=== PATIENT | male | born 1950 | race Caucasian/White ===

== ENCOUNTER 2020-12-23 15:16 | Emergency (ER) | payer BC, OTHER ==
[2020-12-23] MEDS ORDERED: SODIUM CHLORIDE 0.9% 1,000 ML IV STA (15:56)
[2020-12-23] MEDS ORDERED: diltiaZEM INJ 5 MG/ML VIAL IVP STA (15:59)
[2020-12-23 16:05] LABS: BASOPHILS # (AUTO) 0.1 10^3/uL (0.0-0.1); BASOPHILS % (AUTO) 0.6 %; EOSINOPHILS # (AUTO) 0.1 10^3/uL (0.0-0.7); EOSINOPHILS % (AUTO) 0.9 %; HGB - HEMOGLOBIN 15.4 g/dL (14.0-18.0); LYMPHOCYTES % (AUTO) 23.2 %; MEAN CORPUSCULAR HGB CONC 34.1 g/dL (32.0-36.0); MEAN CORPUSCULAR VOLUME 93.8 fL (80.0-94.0); MEAN PLATELET VOLUME 10.3 fL (7.4-11.4); MONOCYTES # (AUTO) 0.6 10^3/uL (0.0-1.0); NEUTROPHILS # (AUTO) 5.8 10^3/uL (1.5-6.6); NEUTROPHILS % (AUTO) 68.1 %; PLT - PLATELET COUNT 265 10^3/uL (130-450); RED BLOOD COUNT 4.82 10^6/uL (4.70-6.10); RED CELL DISTRIBUTION WIDTH 11.7 % (12.0-15.0); WHITE BLOOD COUNT 8.5 x10^3/uL (4.8-10.8)
--- NOTE | 2020-12-23 16:17 | XRAY Report ---
PROCEDURE: Chest 1 View X-Ray INDICATIONS: Chest Pain TECHNIQUE: One view of the chest was acquired. COMPARISON: None FINDINGS: Surgical changes and devices: None. Lungs and pleura: No pleural effusions or pneumothorax. Lungs are clear. Mediastinum: Mediastinal contours appear normal. Heart size is normal. Bones and chest wall: No suspicious bony lesions. Overlying soft tissues appear unremarkable. IMPRESSION: No acute cardiopulmonary process demonstrated radiographically. Reviewed by: Kenji Eric MD on 12/23/2020 4:15 PM PST Approved by: Kenji Eric MD on 12/23/2020 4:15 PM [facility] Station ID: [id number]
[2020-12-23 16:29] LABS: ALBUMIN 4.3 g/dL (3.2-5.5); BILIRUBIN,TOTAL 1.4 mg/dL (0.2-1.0); CALCIUM 9.3 mg/dL (8.5-10.3); CREATININE 1.1 mg/dL (0.6-1.2); TOTAL PROTEIN 6.4 g/dL (6.7-8.2)
--- NOTE | 2020-12-23 16:45 | ED Physician Documentation ---
History of Present Illness - Stated complaint Stated Complaint: LOW BP, IRREGULAR HB - Chief complaint Chief Complaint: Cardiac - History obtained from History obtained from: Patient - History of Present Illness Timing: Today Pain level max: 0 Pain level now: 0 - Additonal information Additional information: Patient is a 69-year-old male who presents to the emergency department complaining of an irregular heartbeat today. States that his pulse was very fast. Has a history of atrial fibrillation in the past and this felt similar. no chest pain. no shortness of breath Did feel mildly lightheaded. He is currently on a ketogenic diet. Nothing makes it better or worse Review of Systems Ten Systems: 10 systems reviewed and negative Constitutional: denies: Fever, Chills Nose: denies: Rhinorrhea / runny nose, Congestion Throat: denies: Sore throat Cardiac: reports: Palpitations GI: denies: Abdominal Pain, Nausea, Vomiting, Diarrhea Skin: denies: Rash Musculoskeletal: denies: Neck pain, Back pain Neurologic: denies: Headache PD PAST MEDICAL HISTORY - Past Medical History Past Medical History: Yes Cardiovascular: Hypertension, Atrial fibrillation - Present Medications Home Medications: Ambulatory Orders Medication Instructions Recorded Confirmed Cyclosporine [Restasis] 1 drops TOP DAILY 12/23/20 12/23/20 Dutasteride [Avodart] 0.5 mg PO DAILY 12/23/20 12/23/20 Lisinopril [Zestril] 20 mg PO DAILY 12/23/20 12/23/20 Mirabegron [Myrbetriq] 1 tab PO DAILY 12/23/20 12/23/20 Valacyclovir HCl [Valtrex] 1 tab PO DAILY 12/23/20 12/23/20 diltiaZEM [Cardizem] 30 mg PO Q6H PRN #10 12/23/20 - Allergies Allergies/Adverse Reactions: Allergies Allergy/AdvReac Type Severity Reaction Status Date / Time No Known Drug Allergies Allergy Verified 12/23/20 15:27 - Social History Does the pt smoke?: No Smoking Status: Former smoker Does the pt drink ETOH?: Yes ETOH Use: Beer Does the pt have substance abuse?: Yes Substance Use and Type: Marijuana - Immunizations Immunizations are current?: Yes PD ED PE NORMAL - Vitals Vital signs reviewed: Yes - General General: Alert and oriented X 3, No acute distress, Well developed/nourished - HEENT HEENT: Moist mucous membranes - Neck Neck: Supple, no meningeal sign - Cardiac Cardiac: Other (Irregular, tachycardic) - Respiratory Respiratory: No respiratory distress, Clear bilaterally - Abdomen Abdomen: Soft, Non tender, Non distended - Back Back: No CVA TTP, No spinal TTP - Derm Derm: Warm and dry - Extremities Extremities: No edema, No calf tenderness / cord - Neuro Neuro: Alert and oriented X 3 - Psych Psych: Normal mood, Normal affect Results - Vitals Vitals: Vital Signs - 24 hr 12/23/20 12/23/20 12/23/20 15:27 15:53 16:12 Temperature 36.5 C Heart Rate 84 133 H 79 Respiratory 16 16 10 L Rate Blood Pressure 159/97 H 118/87 H 141/79 H O2 Saturation 96 96 96 12/23/20 16:57 Temperature Heart Rate 62 Respiratory 16 Rate Blood Pressure 141/85 H O2 Saturation 96 Oxygen O2 Source Room air - EKG (time done) 1521 Rate: Rate (enter#) (136) Rhythm: Atrial fibrillation [place]: Normal QRS: Normal Ischemia: Normal ST segments - Labs Labs: Laboratory Tests 12/23/20 12/23/20 12/23/20 15:23 15:23 15:23 WBC 8.5 RBC 4.82 Hgb 15.4 Hct 45.2 MCV 93.8 MCH 32.0 H MCHC 34.1 RDW 11.7 L Plt Count 265 MPV 10.3 Neut # (Auto) 5.8 Lymph # (Auto) 2.0 G[place]rie # (Auto) 0.6 Eos # (Auto) 0.1 Baso # (Auto) 0.1 Absolute Nucleated RBC 0.00 Nucleated RBC % 0.0 Sodium 137 Potassium 4.4 Chloride 100 L Carbon Dioxide 23 Anion Gap 14.0 H BUN 25 H Creatinine 1.1 Estimated GFR (MDRD) 67 L Glucose 108 H Calcium 9.3 Total Bilirubin 1.4 H AST 32 ALT 33 Alkaline Phosphatase 38 L Troponin I High Sens 12.4 Total Protein 6.4 L Albumin 4.3 Globulin 2.1 Albumin/Globulin Ratio 2.0 Lipase 32 - Rads (name of study) Chest x-ray Radiology: Prelim report reviewed, EMP read contemporaneously, See rad report (No acute abnormality) PD MEDICAL DECISION MAKING - ED course Complexity details: reviewed results, re-evaluated patient, considered differential (No ST elevation ID, no aortic dissection, no PE, no tension pneumothorax, no aortic aneurysm), d/w patient ED course: Patient with paroxysmal atrial fibrillation. This has occurred to him previously. Spontaneously converted in the emergency department prior to administration of diltiazem. No acute findings on laboratory testing. Symptoms resolved. Patient feels better. We will have him follow-up with his doctor for a Holter monitor and further care. Will prescribe as needed diltiazem and have him start on aspirin daily. Patient counseled regarding signs and symptoms for which I believe and urgent re-evaluation would be necessary. Patient with good understanding of and agreement to plan and is comfortable going home at this time This document was made in part using voice recognition software. While efforts are made to proofread this document, sound alike and grammatical errors may occur. Departure - Departure Disposition: 01 Home, Self Care Clinical Impression: Atrial fibrillation with rapid ventricular response Condition: Good Instructions: ED Afib Follow-Up: Arik Hernandez MD [Primary Care Provider] - Within 1 week Prescriptions: diltiaZEM [Cardizem] 30 mg PO Q6H PRN #10 PRN Reason: atrial fibrillation Comments: Follow-up with your doctor for further care. They will likely want to put you on a heart monitor so they can determine the amount of time that you are in atrial fibrillation as this will guide your management. You should start on a baby aspirin daily as well. Return if you worsen. You can use the cardizem if you feel this happen again. Discharge Date/Time: 12/23/20 17:37
[2020-12-23 16:58] VITALS: BP 141/85
== END 2020-12-23 17:37 | disposition home or self-care (01) ==
LOC: ED 15:16
DX: I48.0 Paroxysmal atrial fibrillation (principal); I10 Essential (primary) hypertension; Z87.891 Personal history of nicotine dependence
CPT/HCPCS: 36415; 80053; 83690; 84484; 85025; 93005; 96360; 99284

== ENCOUNTER 2021-05-10 17:06 | Outpatient (CLI) | payer BC, OTHER | END 2021-05-10 17:07 | disposition home or self-care (01) | LOC: COV 17:06 | PROVIDERS: ATTEND Urology | DX: Z01.812 Encounter for preprocedural laboratory examination (principal); Z20.822 Contact with and (suspected) exposure to COVID-19 ==